=== PATIENT | female | born 1970 | race Hispanic/Latino ===

== ENCOUNTER 2018-08-27 12:32 | Outpatient (CLI) | payer OTHER ==
--- NOTE | 2018-08-27 16:48 | NM ---
HIDA SCAN: 08/27/18 INDICATION: Right upper quadrant abdominal pain for two months. RADIOPHARMACEUTICAL: 5.3 millicuries technetium 99m Mebrofenin IV. FINDINGS: The gallbladder is identified by the 7 minute time alem. Bowel activity is identified by the 17 minut e time alem. The gallbladder ejection fraction is estimated at 40% after administration of 8 oz of p. o. Ensure. IMPRESSION: Normal HIDA scan. POS: [facility]
== END 2018-08-27 12:33 | disposition home or self-care (01) ==
LOC: NM 12:32
PROVIDERS: ATTEND Internal Medicine
DX: R10.11 Right upper quadrant pain (principal); D50.9 Iron deficiency anemia, unspecified
CPT/HCPCS: 78227; A9537

== ENCOUNTER 2018-11-14 10:45 | Outpatient (CLI) | payer OTHER ==
[2018-11-14 11:37] LABS: Hemoglobin 13.5 g/dL (12.0-16.0); Mean Corpuscular HGB CONC 32.9 g/dL (32.0-36.0); Mean Corpuscular Hemoglobin 29.4 pg (27.0-31.0); Mean Corpuscular Volume 89.4 fL (78.0-98.0); Mean Platelet Volume 9.7 fL (7.4-10.4); Platelet Count 150 thou/uL (130-400); RBC Distribution Width 12.1 % (11.5-14.5)
[2018-11-14 12:02] LABS: Anion Gap 10 mmol/L (10-20); BUN (Urea Nitrogen) 16 mg/dL (7.0-18.7); Calc. Creatinine Clearance 0 mL/min (70-130); Calcium 9.2 mg/dL (7.8-10.44); Carbon Dioxide 28 mmol/L (22-29); Chloride 105 mmol/L (98-107); Estimated GFR-MDRD 86; Glucose 89 mg/dL (70-105); Potassium 4.2 mmol/L (3.5-5.1); Sodium 139 mmol/L (136-145)
--- NOTE | 2018-11-17 17:54 | EKG ---
Test Reason : Blood Pressure : / mmHG Vent. Rate : 063 BPM Atrial Rate : 063 BPM P-R Int : 142 ms QRS Dur : 086 ms QT Int : 408 ms P-R-T Axes : 048 081 039 degrees QTc Int : 417 ms Normal sinus rhythm Normal ECG No previous ECGs available Confirmed by BRIAN CHRISTIE (2) on 11/17/2018 5:53:24 PM Referred By: DARREN Confirmed By:BRIAN CHRISTIE
== END 2018-11-14 10:46 | disposition home or self-care (01) ==
LOC: LABBT 10:45
PROVIDERS: ATTEND Specialist
DX: Z01.818 Encounter for other preprocedural examination (principal); R10.11 Right upper quadrant pain; Z87.19 Personal history of other diseases of the digestive system
CPT/HCPCS: 80048; 85027; 93005; 93010

== ENCOUNTER 2018-11-18 10:29 | Day surgery (SDC) | payer OTHER ==
[2018-11-14 10:52] VITALS: BMI 25.8
[2018-11-18] MEDS ORDERED: Ketorolac Tromethamine 30 MG/ML VIAL ONE (10:53)
[2018-11-18 11:09] LABS: #Basophils 0.1 thou/uL (0.0-0.2); #Eosinphils 0.2 thou/uL (0.0-0.7); #Lymphocytes 2.5 thou/uL (1.20-3.40); #Monocytes 0.5 thou/uL (0.11-0.59); #Neutrophils 3.1 thou/uL (1.40-6.50); %Basophils 1.2 % (0.0-1.0); %Eosinophils 3.2 % (0.0-10.0); %Lymphocytes 39.5 % (21.0-51.0); %Monocytes 7.8 % (0.0-10.0); %Neutrophils 48.4 % (42.0-75.0); Hemoglobin 13.4 g/dL (12.0-16.0); Mean Corpuscular HGB CONC 33.9 g/dL (32.0-36.0); Mean Corpuscular Hemoglobin 30.4 pg (27.0-31.0); Mean Corpuscular Volume 89.7 fL (78.0-98.0); Platelet Count 154 thou/uL (130-400); RBC Distribution Width 11.9 % (11.5-14.5); Red Blood Cell (RBC) Count 4.42 mill/uL (4.20-5.40); White Blood Cell (WBC) Count 6.4 thou/uL (4.8-10.8)
[2018-11-18 11:44] LABS: ALT (SGPT) 16 U/L (8-55); AST (SGOT) 15 U/L (5-34); Albumin 4.3 g/dL (3.5-5.0); Alkaline Phosphatase 44 U/L (40-150); Anion Gap 10 mmol/L (10-20); BUN (Urea Nitrogen) 13 mg/dL (7.0-18.7); Bilirubin, Total 0.4 mg/dL (0.2-1.2); Calc. Creatinine Clearance 101 mL/min (70-130); Calcium 9.3 mg/dL (7.8-10.44); Carbon Dioxide 26 mmol/L (22-29); Chloride 105 mmol/L (98-107); Estimated GFR-MDRD 79; Globulin 2.7 g/dL (2.4-3.5); Glucose 98 mg/dL (70-105); Potassium 4.1 mmol/L (3.5-5.1); Sodium 137 mmol/L (136-145)
[2018-11-18] MEDS ORDERED: Scopolamine 1.5 mg/72 hour Patch ONE (11:56)
[2018-11-18] MEDS ORDERED: Bupivacaine/Epinephrine 0.25% 30 ML VIAL ONE (12:14)
[2018-11-18] MEDS ORDERED: Midazolam HCl 2 mg/2 ml Vial ONE (12:15)
[2018-11-18] MEDS ORDERED: Fentanyl 100 MCG/2 ML VIAL ONE ×2 (12:15→13:59)
[2018-11-18] MEDS ORDERED: Lidocaine 2% Jelly 5 ML TUBE ONE (12:15)
[2018-11-18] MEDS ORDERED: PROPOFOL 200 MG/20 ML VIAL ONE (13:47)
[2018-11-18] MEDS ORDERED: Dexamethasone 20 MG/5 ML VIAL ONE (13:47)
[2018-11-18] MEDS ORDERED: Glycopyrrolate 0.2 MG/ML 5 ML SYRINGE ONE (13:47)
[2018-11-18] MEDS ORDERED: Lidocaine 1% PF 5 ML VIAL ONE (13:47)
[2018-11-18] MEDS ORDERED: Ondansetron PF 4 MG/2 ML Vial ONE (13:47)
[2018-11-18] MEDS ORDERED: Rocuronium Bromide 10 MG/ML (10ML VIAL) ONE (13:47)
[2018-11-18] MEDS ORDERED: HYDROcodone/Acetaminophen 5/325 mg Tablet ONE (16:03)
--- NOTE | 2018-11-19 00:50 | OP ---
DATE OF PROCEDURE: 11/18/2018 PREOPERATIVE DIAGNOSES: Right upper quadrant abdominal pain consistent with a gallbladder etiology, history of acute appendicitis within the last year. POSTOPERATIVE DIAGNOSES: Right upper quadrant abdominal pain consistent with a gallbladder etiology, history of acute appendicitis within the last year. OPERATIONS PERFORMED: Laparoscopic cholecystectomy, laparoscopic appendectomy. ANESTHESIA: General endotracheal. INDICATIONS: The patient is a 48-year-old white female. She has undergone an extensive workup of right upper quadrant abdominal pain without a definite etiology. I have discussed the option of laparoscopic cholecystectomy in hopes of leading to resolution of her abdominal pain and she presents for this purpose. Additionally, she was diagnosed within the last year of acute appendicitis, it was treated nonoperatively with antibiotics. I have recommended appendectomy secondary to this recent diagnosis and the likelihood of further appendicitis. DESCRIPTION OF OPERATION: Informed consent was obtained. The patient was taken to the operating room and general endotracheal anesthesia was obtained with the patient in supine position. Abdomen was prepped with ChloraPrep and draped in sterile fashion. Local anesthetic was infiltrated using 0.25% Marcaine with epinephrine. A 11-mm infraumbilical incision was created through which a Veress needle was passed in the peritoneal cavity and pneumoperitoneum was established using carbon dioxide up to pressure of 15 mmHg. A 11-mm trocar port was passed through the same incision. Laparoscopic camera was passed through this port. Under direct vision, 3 additional 5-mm right upper quadrant ports were placed in the usual fashion. Attention was turned to the gallbladder. This was grasped and retracted in a cephalad direction. Infundibulum was grasped, retracted laterally and inferiorly. Careful dissection was carried at the apex of the gallbladder to identify the cystic duct and cystic artery. These were each carefully dissected circumferentially and divided between clips, leaving 2 on the side to remain within the abdomen. The gallbladder was dissected away from the gallbladder fossa of the liver, maintaining hemostasis using electrocautery. It was removed then through the umbilical port site. The fascia was closed with 0 Vicryl suture using a GraNee needle. Attention was turned to the right lower quadrant. A 5-mm supraumbilical port was placed. The appendix was identified. There were no adhesions to the appendix and had a normal appearance. It was grasped and elevated. The mesoappendix was taken down using electrocautery and the base was skeletonized. The base appeared normal and was divided between 2 Endoloop ties. The appendiceal stump was cauterized. The appendix was placed in a specimen retrieval sac, which was removed through the 11-mm port. The pelvis was then examined. The adnexa were within normal limits on both sides. The uterus was somewhat enlarged and had evidence of fibroid tumors. The pelvis was irrigated and aspirated. There was no evidence of any adhesive abnormality in the appendix. The small bowel was briefly examined and found to be without definite abnormality. All ports and instruments were removed under direct vision. Pneumoperitoneum was carefully evacuated. 0.25% Marcaine with epinephrine was infiltrated at each port site. Skin edges approximated with 4-0 Monocryl subcuticular suture. Dermabond was placed externally. There were no complications. The patient tolerated the procedure well and was taken to recovery room in stable condition. Job ID: [id number]
== END 2018-11-18 17:32 | disposition home or self-care (01) ==
LOC: SDC 10:29
PROVIDERS: ATTEND Specialist
PROC: 0FT44ZZ Resection of Gallbladder, Percutaneous Endoscopic Approach (ICD-10-PCS; principal; 2018-11-18)
PROC: 0DTJ4ZZ Resection of Appendix, Percutaneous Endoscopic Approach (ICD-10-PCS; principal; 2018-11-18)
DX: K37 Unspecified appendicitis (principal); K82.4 Cholesterolosis of gallbladder
CPT/HCPCS: 36415; 80053; 85025; 88304; J0131; J1885; J2250; J3010